=== PATIENT | male | born 1990 | race Caucasian/White ===

== ENCOUNTER 2017-03-30 22:36 | Emergency (ER) | payer BC ==
[2017-03-31] MEDS ORDERED: Hydrocortisone/Neomycin/Polymyxin B Otic Susp 10 ML Bottle ONE (01:12)
[2017-03-31 01:49] VITALS: BP 135/88
--- NOTE | 2017-03-31 03:55 | ER ---
DATE SEEN: 03/30/2017 CHIEF COMPLAINT: Left eye discharge. 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 He felt a foreign body go into it, dust, while he was under a vehicle. When he wears contact lenses, symptoms improved; but when he takes them off, he feels a scratch. REVIEW OF SYSTEMS: No headaches. No nausea or vomiting. No double vision. PAST MEDICAL HISTORY: Healthy. ALLERGIES: None. PHYSICAL EXAMINATION: GENERAL: Nontoxic. VITAL SIGNS: Afebrile and normotensive. HEENT: The left eye revealed mild conjunctival erythema. There was a small foreign body in the cornea about a mm in size. Pupils are equal, react to light. Extraocular movements are intact. IMPRESSION: Foreign body, left eye. PLAN: I used a drill to remove it after numbing tetracaine and then sent him home with eyedrops, Cortisporin. Recommend follow up p.r.n. TIME SEEN: 0045 hours. /[id number]/[id number]
== END 2017-03-31 00:15 | disposition home or self-care (01) ==
LOC: FB.ED 22:36
DX: T15.02XA Foreign body in cornea, left eye, initial encounter (principal); X58.XXXA Exposure to other specified factors, initial encounter
CPT/HCPCS: 65220; 99283; A9270